=== PATIENT | female | born 2005 | race Caucasian/White ===

== ENCOUNTER 2024-02-01 21:45 | Emergency (ER) | payer OTHER, SELFPAY ==
--- NOTE | ~2024-02-01 | US_ITS ---
EXAMINATION: US , LIMITED CLINICAL INFORMATION: Decreased movements. COMPARISON: None available. TECHNIQUE: Transabdominal limited ultrasound performed FINDINGS: There is a single intrauterine gestation with size matching given dates of 27 weeks. There is normal cardiac activity with heart rate of 149 bpm. The current presentation is cephalic. The placenta is anterior. Amniotic fluid volume is grossly within normal limits. US/US OB limited IMPRESSION: Limited examination shows viable intrauterine gestation. Electronically signed by: Brody Bray MD 02/02/2024 12:52 AM [facility]
[2024-02-01 21:51] VITALS: BP 142/62; PULSE 85; RESP 18; TEMP 36.9; O2SAT 99; BMI 21.7
--- NOTE | 2024-02-01 22:24 | MHC.EDTECH ---
This tech went to draw pt,pt is getting an ultrasound done at bedside at this time,RN and provider aware
[2024-02-01 22:52] LABS: MANUAL DIFF FLAG NO
[2024-02-01 22:53] LABS: Basophils Percent Auto 0.2 % (0-2); Eosinophils Absolute Auto 0.2 X10*3/uL (0.0-0.4); Eosinophils Percent Auto 1.7 % (0-4); Hematocrit 28.4 % (37.0-47.0); Hemoglobin 10.5 g/dl (12.0-16.0); Imm Gran Pct Auto 0.9 % (0.0-0.4); Lymphocytes Absolute Auto 1.9 X10*3/uL (1.2-4.9); Lymphocytes Percent Auto 17.8 % (20-40); Mean Corpuscular Hemoglobin 32.2 pg (27.0-33.0); Mean Corpuscular Volume 87.1 fL (80.0-98.0); Mean Platelet Volume 9.5 fL (9.4-12.3); Monocytes Absolute Auto 0.7 X10*3/uL (0.1-1.2); Monocytes Percent Auto 6.1 % (2-11); Neutrophils Absolute Auto 7.8 x10*3/uL (2.0-8.3); Neutrophils Percent Auto 73.3 % (45-73); Platelet Count 153 X10*3/uL (160-400); Red Blood Count 3.26 X10*6/uL (4.20-5.50); White Blood Count 10.6 X10*3/uL (4.8-10.8)
[2024-02-01] MEDS: 0.9 % Sodium Chloride 1,000 ML 999 ML IV ×2 (22:56)
[2024-02-01 23:15] LABS: Alanine Aminotransferase 12 U/L (0-31); Albumin Level 3.3 g/dL (3.5-5.0); Alkaline Phosphatase 86 U/L (39-117); Anion Gap 11 (12-20); Aspartate Amino Transferase 24 U/L (5-31); Bilirubin Total 0.2 mg/dL (0.0-1.0); Blood Urea Nitrogen 7 mg/dL (9-16); Calcium 8.4 mg/dL (8.4-10.2); Carbon Dioxide 22 mmol/L (22-29); Chloride 109 mmol/L (96-108); Creatinine Clr Calc Pharmacy 123.1; Estimated Glomerular Filt Rate > 60; Glucose Random 100 mg/dL (60-115); Magnesium 1.7 mg/dL (1.6-2.6); Potassium 3.8 mmol/L (3.3-5.1); Sodium 138 mmol/L (135-145); Total Protein 5.9 g/dL (6.5-8.0)
[2024-02-01 23:37] LABS: HCG Quantitative 24676 mIU/mL
[2024-02-02 00:33] VITALS: BP 114/68; PULSE 94; RESP 16; TEMP 36.4; O2SAT 98
[2024-02-02 00:42] LABS: Appearance Urine Cloudy; Color Urine Yellow; Glucose Urine UA Negative (Negative); Leukocyte Esterase Urine Moderate (2+) (Negative); Nitrite Urine Negative (Negative); PH 8.5 (5.0-9.0); Specific Gravity - Urine 1.015 (1.005-1.025); UMIC TRIGGER UACC YES; Urine Blood Negative (Negative); Urine Ketones Negative (Negative); Urine Protein Negative (Neg-Trace)
[2024-02-02 00:44] LABS: Bacteria Urine 1+ (None Seen); RBC Urine 0-2 /HPF (0-2); UACC Culture Trigger YES; WBC Urine 21-50 /HPF (0-5)
--- NOTE | 2024-02-02 00:49 | MHC.EDTECH ---
called Wale About the ultrasounf taken at 2200 it is now 2324
--- NOTE | 2024-02-02 01:17 | ED.PREGNANCY ---
HPI - General Chief complaint: OB Stated complaint: 27wks preg/baby movement decreased Time Seen by Provider: 02/01/24 22:04 Source: patient Limitations: no limitations History of Present Illness ED Provider: Destinee Osorio PA-C HPI Narrative: 18-year-old female currently 27 weeks with the expected due date of 05/04/2023, presents with concern for decreased movement. Patient states this evening she feels as if the baby isn't moving as much as he has been. Per the patient, she has marginal cord insertion with anterior placenta placement, her pickling drum operator is affiliated with [place]. She did not call her pickling drum operator tonight. Denies vaginal bleeding vaginal discharge or fever. Denies abdominal pain or cramping. Related Data Previous Rx's ?Medication ?Instructions ?Recorded amoxicillin 500 mg capsule 500 mg PO BID #20 caps 02/02/24 Allergies Allergy/AdvReac Type Severity Reaction Status Date / Time No Known Allergies Allergy Verified 02/01/24 21:51 Review of Systems Review of Systems: Yes all other systems are reviewed and are negative Constitutional: Constitutional: Denies fatigue and Denies fever(s) Cardiovascular: Cardiovascular: Denies chest pain and Denies dyspnea Respiratory: Respiratory: Denies dyspnea Gastrointestinal: Gastrointestinal: Reports abdominal pain, Denies nausea and Denies vomiting Genitourinary: Genitourinary: Denies dysuria and Denies vaginal discharge Endocrine: Endocrine: Denies fatigue [facility] Past Medical History Attestation statement: The following information was validated with the patient. Social History Social History Smoked in Last 30 Days: No Advance Directives: No Advance Directives Information Provided: No Patient : Yes Physical Exam Vital Signs: Vital Signs: Last Vital Signs Temp 97.6 F 02/02/24 00:33 Pulse 94 02/02/24 00:33 Resp 16 02/02/24 00:33 BP 114/68 02/02/24 00:33 Pulse Ox 98 02/02/24 00:33 O2 Del Method Room Air 02/02/24 00:33 BMI result Body Mass Index 21.7 Const: Other: Alert, overall well-appearing Orientation/consciousness: patient oriented x3 Resp: Other: Nonlabored respiration Cardio: Other: Normal peripheral perfusion GI: Other: Abdomen is soft, nontender no guarding Skin: Other: Warm dry no rash Neuro: General: patient oriented x3, no focal motor deficits and CN's II-XI intact bilaterally Psych: Other: Calm cooperative Course Reevaluation(s) Reevaluation #1: The patient was able to speak to the on-call physician, the patient will be following up tomorrow in the office. Medications Administered Discontinued Medications Generic Name Dose Route Start Last Admin Trade Name Freq PRN Reason Stop Dose Admin Sodium Chloride 1,000 mls @ 999 mls/hr 02/01/24 22:30 02/01/24 23:57 Ns IV 02/01/24 23:30 Infused .Q1H1M SELENA Infusion Sodium Chloride 1,000 mls @ 999 mls/hr 02/01/24 22:30 02/01/24 23:57 Ns IV 02/01/24 23:30 Infused .Q1H1M SELENA Infusion Medical Decision Making Medical Decision Making [facility] Narrative: 18-year-old female currently 27 weeks with the expected due date of 05/04/2023, presents with concern for decreased movement. Patient states this evening she feels as if the baby isn't moving as much as he has been. Per the patient, she has marginal cord insertion with anterior placenta placement, her pickling drum operator is affiliated with [place]. She did not call her pickling drum operator tonight. Denies vaginal bleeding vaginal discharge or fever. Denies abdominal pain or cramping. Problem: Marginal cord insertion, History: Per patient I have considered the following differential diagnoses: demise Plan: We will be obtaining a formal ultrasound. Per my bedside ultrasound, I see appropriate cardiac activity, the baby is moving. We will screen basic labs, urinalysis and the patient is reaching out to her pickling drum operator now. I have independently reviewed the following tests: Labs: No leukocytosis, not anemic, no electrolyte abnormality, evidence of UTI, we will treat with the amoxicillin Obstetric ultrasound:FINDINGS: There is a single intrauterine gestation with size matching given dates of 27 weeks. There is normal cardiac activity with heart rate of 149 bpm. The current presentation is cephalic. The placenta is anterior. Amniotic fluid volume is grossly within normal limits. US/US OB limited IMPRESSION: Limited examination shows viable intrauterine gestation. Electronically signed by: Brody Bray MD 02/02/2024 12:52 AM [facility] Lab Data 02/01/24 22:47 02/01/24 22:47 Labs: Lab Results 02/01/24 02/02/24 Range/Units 22:47 00:31 WBC 10.6 (4.8-10.8) X10*3/uL RBC 3.26 L (4.20-5.50) X10*6/uL Hgb 10.5 L (12.0-16.0) g/dl Hct 28.4 L (37.0-47.0) % MCV 87.1 (80.0-98.0) fL MCH 32.2 (27.0-33.0) pg MCHC 37.0 H (31.0-35.0) g/dl RDW 12.0 (11.0-16.0) % Plt Count 153 L (160-400) X10*3/uL MPV 9.5 (9.4-12.3) fL Immature Gran % (Auto) 0.9 H (0.0-0.4) % Neut % (Auto) 73.3 H (45-73) % Lymph % (Auto) 17.8 L (20-40) % [place] % (Auto) 6.1 (2-11) % Eos % (Auto) 1.7 (0-4) % Baso % (Auto) 0.2 (0-2) % Lymph # (Auto) 1.9 (1.2-4.9) X10*3/uL [place] # (Auto) 0.7 (0.1-1.2) X10*3/uL Eos # (Auto) 0.2 (0.0-0.4) X10*3/uL Baso # (Auto) 0.0 (0.0-0.2) X10*3/uL Abs Immat Gran (auto) 0.10 H (0.00-0.03) X10*3/uL Absolute Neuts (auto) 7.8 (2.0-8.3) x10*3/uL Absolute Nucleated RBC 0.000 (0.0-0.012) X10*3/uL Nucleated RBC % (auto) 0.0 (0.0-0.2) /100WBC Sodium 138 (135-145) mmol/L Potassium 3.8 (3.3-5.1) mmol/L Chloride 109 H (96-108) mmol/L Carbon Dioxide 22 (22-29) mmol/L Anion Gap 11 L (12-20) BUN 7 L (9-16) mg/dL Creatinine 0.55 (0.5-1.4) mg/dL Estim Creat Clear Calc 123.1 Estimated GFR > 60 Random Glucose 100 (60-115) mg/dL Calcium 8.4 (8.4-10.2) mg/dL Magnesium 1.7 (1.6-2.6) mg/dL Total Bilirubin 0.2 (0.0-1.0) mg/dL AST 24 (5-31) U/L ALT 12 (0-31) U/L Alkaline Phosphatase 86 (39-117) U/L Total Protein 5.9 L (6.5-8.0) g/dL Albumin 3.3 L (3.5-5.0) g/dL Beta HCG, Quant 37001 mIU/mL Urine Color Yellow Urine Appearance Cloudy Urine pH 8.5 (5.0-9.0) Ur Specific [place] 1.015 (1.005-1.025) Urine Protein Negative (Neg-Trace) mg/dL Urine Glucose (UA) Negative (Negative) mg/dL Urine Ketones Negative (Negative) mg/dL Urine Blood Negative (Negative) Urine Nitrite Negative (Negative) Ur Leukocyte Esterase Moderate (2+) H (Negative) Urine RBC 0-2 (0-2) /HPF Urine WBC 21-50 H (0-5) /HPF Ur Squamous Epith Cells 3-5 (0-2) /HPF Urine Bacteria 1+ (None Seen) Hyaline Casts 3-5 (0-2) /LPF Discharge Plan Discharge Clinical Impression: and not yet delivered in third trimester, Urinary tract infection Patient Disposition: Home, Self-Care Instructions: Urinary Tract Infection in (ED) Additional Instructions: The ultrasound was normal. As you were instructed, follow up with your pickling drum operator tomorrow. You were also found to have a suspect UTI, take the amoxicillin as directed. Prescriptions: New amoxicillin 500 mg capsule 500 mg PO BID Qty: 20 0RF Print Language: Latvian
[2024-02-02] MEDS: Amoxicillin 500 MG CAPSULE PO (01:52)
[2024-02-02 01:57] VITALS: BP 114/68; PULSE 94; RESP 16; TEMP 36.4; O2SAT 98
== END 2024-02-02 01:58 | disposition home or self-care (01) ==
PROVIDERS: Physician Assistant Medical; Emergency Provider Emergency Medicine
DX: O23.43 Unspecified infection of urinary tract in pregnancy, third trimester (principal); N39.0 Urinary tract infection, site not specified; R11.2 Nausea with vomiting, unspecified; Z3A.28 28 weeks gestation of pregnancy; Z79.899 Other long term (current) drug therapy
CPT/HCPCS: 36415; 76815; 80053; 81001; 83735; 84702; 85025; 87086; 87088; 87186; 96360; 99284